=== PATIENT | female | born 1965 | race Two or more races ===

== ENCOUNTER → 2024-05-02 | Outpatient (CLI) | payer BC, SELFPAY ==
--- NOTE | 2024-05-02 10:00 | XR_ITS ---
Examination: Breast ultrasound complete, bilateral Date and time of exam: May 02, 2024 0948 hours INDICATIONS: Mammogram April 02, 2024 16 mm focal asymmetry upper inner left breast 10 mm focal asymmetry upper right breast MLO view Technique: Real-time grayscale ultrasonographic imaging bilateral breasts, including all 4 quadrants as well as nipple retroareolar and axillary regions. Findings: Sonographic images right breast No cystic or solid mass Sonographic images left breast No cystic or solid mass IMPRESSION: Negative examination
--- NOTE | 2024-05-02 11:00 | XR_ITS ---
Examination: Diagnostic digital mammography, bilateral Computer aided detection 3-D breast Tomosynthesis, bilateral Date and time of exam: May 02, 2024 1012 hours INDICATIONS: Mammogram April 02, 2024 16 mm focal asymmetry upper inner left breast 10 mm focal asymmetry upper right breast MLO view Technique: Nonmagnified MLO, CC views of the breasts to been obtained, reconstructed from 3-D Tomosynthesis images. R2 computer aided detection program utilized for evaluation of suspicious masses and/or abnormal calcifications. 3-D Tomosynthesis images obtained. Findings: The breasts are heterogeneously dense, which may obscure small masses Spot compression views both breasts do not demonstrate suspicious masses Impression: BI-RADS Category 2: Benign findings Return to yearly follow-up mammography.
== END | disposition home or self-care (01) ==
PROVIDERS: PCP Nurse Practitioner Family; Referring Provider Nurse Practitioner Family; Visit Provider Nurse Practitioner Family
DX: R92.323 Mammographic fibroglandular density, bilateral breasts (principal); N64.89 Other specified disorders of breast
CPT/HCPCS: 76641; 77062; 77066; G0279

== ENCOUNTER 2024-06-09 21:04 | Emergency (ER) | payer BC, SELFPAY ==
[2024-06-09 21:06] VITALS: BP 122/71; PULSE 80; RESP 20; TEMP 36.7; O2SAT 99
[2024-06-09 21:08] VITALS: BMI 53.1
[2024-06-09 21:14] VITALS: PULSE 85; RESP 22; O2SAT 95; BMI 24.7
--- NOTE | 2024-06-09 21:18 | EKG_ITS ---
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
--- NOTE | 2024-06-09 21:40 | XR_ITS ---
Examination: PA lateral chest 2 views Technique: Upright PA lateral chest 2 views Exam date and time: June 09, 2024 at 1033 hrs. Indications: Onset chest pain today. Findings: Normal heart size Lungs are clear. The osseous structures are intact Impression: No active disease
[2024-06-09] MEDS: MG HYD/AL HYD/SIME (Maalox Reg) SUSP 30 ML UDC PO (21:49)
[2024-06-09] MEDS: LIDOCAINE VISCOUS 2% 15 ML UDC PO (21:49)
--- NOTE | 2024-06-09 22:16 | PD.EDCHEST ---
ED Chest Pain RME/HPI General Chief Complaint: Chest Pain Stated Complaint: CHEST PAIN, SOB Time Seen by Provider: 06/09/24 21:39 Source: patient and EMS Arrival date/time: 06/09/24 21:04 Mode of arrival: EMS Limitations: no limitations RME / HPI RME / HPI narrative: Dr. Desai?s Main ED Evaluation: 59-year-old female with a history of rheumatoid arthritis, scleroderma, esophageal achalasia, who presents to the emergency department with left-sided substernal chest pain rating to the left shoulder that started while at rest. She was otherwise well during the day with no physical complaints. She did notice increased stress at work which had affected her diet and she had a late lunch and skipped her dinner. At home she had 1 glass of vodka to help her relax and send for the television to watch Smith's anatomy . It was during this where she noticed her left side is chest pressure, mild shortness of breath, and some dizziness. She got up to walk to see if this would improve her pain and did not therefore she called EMS. She does note chest discomfort with her esophageal issues where she normally walks up to go to a quiet room to relax . Today she noticed it got worse when she got up therefore she called EMS. She also notes 2 to 3 days of productive cough, she does not note sputum color. She denies fevers or sick contacts EMS reports stable upon arrival, no acute findings on EKG, improvement of pain with nitroglycerin x 2 given and reviewed. Related Data Home Medications ?Medication ?Instructions ?Recorded ?Confirmed amitriptyline 10 mg tablet 10 mg PO HS 02/23/23 02/23/23 cevimeline 30 mg capsule 1 cap PO QDAY 02/23/23 02/23/23 dexamethasone 1 mg/mL drops 1 mg PO QDAY 02/23/23 02/23/23 (concentrate) (Dexamethasone Intensol) hydroxychloroquine 200 mg tablet 200 mg PO QDAY 02/23/23 02/23/23 (Plaquenil) levothyroxine 88 mcg tablet 88 mcg PO QDAY 02/23/23 02/23/23 omeprazole 40 mg capsule,delayed 40 mg PO QDAY 02/23/23 02/23/23 release pregabalin 100 mg capsule (Lyrica) 100 mg PO BID 02/23/23 02/23/23 Allergies Allergy/AdvReac Type Severity Reaction Status Date / Time Penicillins Allergy Severe Swelling Verified 02/23/23 09:12 of Lip/Tongue/Throat Review of Systems Review of Systems Systems Reviewed: All systems reviewed, normal except as documented Past Medical History Past Medical History NEUROLOGIC: Negative Neurological Disorders or Seizures CARDIAC: Negative Cardiac Disorders or Congestive Heart Failure RESPIRATORY: Negative Chronic Obstructive Pulmonary Disease (COPD) GASTROINTESTINAL: Negative Gastrointestinal Disorders GENITOURINARY: Negative Genitourinary Disorders or Renal Disease MUSCULOSKELETAL: Positive Musculoskeletal Disorders and Fibromyalgia ENDOCRINE: Positive Endocrine Disorders and Hypothyroidism; Negative Diabetes Mellitus Type 1 or Diabetes Mellitus Type 2 HEMATOLOGIC: Negative Blood Disorders OTHER HISTORY: Positive Autoimmune Disease (FIBROMYALGIA, CREST SYNDROME, LUPUS); Negative Blood Transfusions, Blood Transfusion Reaction, Anesthesia Reactions, Chicken Pox, Measles, Mumps or Cancer Surgical History SURGICAL: Positive Section (X2) Social History SMOKING STATUS: Never smoker ED Exam Narrative Physical exam: GENERAL APPEARANCE: AxOx4, generally well-appearing, no acute distress. HEENT: NC, AT. MMM. EOMI, clear conjunctiva, oropharynx clear. NECK: Supple without lymphadenopathy. No stiffness or restricted ROM. HEART: Normal rate and regular rhythm, normal S1/S1, no m/r/g LUNGS: CTAB, moving air well. No crackles or wheezes are heard. ABDOMEN: Soft, nontender, nondistended with good bowel sounds heard. BACK: No midline C/T/L spine pain or deformity, No CVAT, no obvious deformity. EXTREMITIES: Without cyanosis, clubbing or edema. MUSCULOSKELETAL: FROM of all major joints, no chest tenderness NEUROLOGICAL: Grossly nonfocal. Alert and oriented, moving all 4 extremities. CN not formally tested but appear grossly intact. Observed to ambulate with normal gait. Skin: Warm and dry without any rash. General Limitations: Present no limitations Course Course Course Narrative: CXR is ordered for determining etiology of chest pain. Quality Measures none Orders Category Date Time Status EKG (ED ONLY) *Do not use* NOW Care 06/09/24 21:18 Completed EKG (ED Only) Stat Exams 06/09/24 21:18 Draft XR chest 2V Stat Exams 06/09/24 21:40 Completed CMP [Comprehensive Metabolic Panel] Stat Lab 06/09/24 21:53 Completed Troponin I Stat Lab 06/09/24 21:53 Completed Troponin I Stat Lab 06/09/24 23:30 Completed Acetaminophen Tab [Tylenol Tab] Med 06/10/24 00:29 Discontinued 650 mg PO X1 ONE Lidocaine 2% Viscous [Xylocaine 2% Viscous] Med 06/09/24 21:39 Discontinued 15 ml PO X1 ONE mg Hyd/Al Hyd/Marvin Susp [Maalox Susp] Med 06/09/24 21:39 Discontinued 30 ml PO X1 ONE Vital Signs Vital signs: Vital Signs Temperature 98.1 F 06/09/24 21:06 Pulse Rate 80 06/09/24 21:06 Respiratory Rate 20 06/09/24 21:06 Blood Pressure 122/71 06/09/24 21:06 Pulse Oximetry (%) 99 06/09/24 21:06 Oxygen Delivery Method Nasal Cannula 06/09/24 21:06 Oxygen Flow Rate 4 06/09/24 21:06 Chest Pain MDM Narrative MDM Narrative:: 59-year-old female with a history of esophageal spasms, chronic recurrent chest pain, who comes with worsening of her chest pain. She does note some dietary changes during the day due to situational stresses at work. Chest pain is of low suspicion for cardiac ischemia. Patient has no risk factors for coronary artery disease. EKG and troponin x 2 are negative, heart score of 1, she is appropriate for outpatient follow-up. Given her past history of esophageal spasm she was given a GI cocktail with improvement of pain. Remainder of laboratory testing such as renal function and electrolytes are within normal limits. Chest x-ray on my interpretation shows nonspecific bronchial markings in the right lower lobe which are nonspecific. Patient is otherwise asymptomatic without cough, do not feel this is an overt infection or pneumonia. Radiology interpretation is pending. I have reviewed these findings with the patient and encouraged close follow-up with her primary care doctor both for pulmonary and cardiac follow-up. As patient is stable vital signs, negative workup, she is appropriate for outpatient Scribe Attestation: I, Ed Vegas, am scribing for and in the presence of Dr. Desai. Provider Notation: Although this document has been carefully reviewed, there may still be some phonetic and other typographical errors. These errors are purely grammatical due to imperfections in the software program and should not be construed in any way to compromise the substance of the patient's medical care during this visit. Patient data External records reviewed:: [facility] previous records and EMS form Clinical information provided by:: patient and EMS Social determinants that could affect healthcare access:: none Patient has the following chronic illnesses:: rheumatoid arthritis, scleroderma, esophageal achalasia How is presenting disease/condition affected by chronic disease/condition?: uneffected by Evaluation data The following diagnostics were reviewed and interpreted by me:: lab results, radiology exam(s) and EKG tracing(s) Lab and/or radiology exams considered but not ordered:: None Interpretation Summary: See narrative Medications / Prescriptions Medications or Prescriptions considered but not ordered:: None Medication administrations:: Medication Administration History Discontinued Medications Acetaminophen (Acetaminophen 325 Mg Tablet) 650 mg PO X1 ONE Stop: 06/10/24 00:30 Al Hydrox/Mg Hydrox/Simethicone (Mg Hyd/Al Hyd/Marvin (Maalox Reg) Susp 30 Ml Udc) 30 ml PO X1 ONE Stop: 06/09/24 21:40 Last Admin: 06/09/24 21:49 Dose: 30 ml Documented By: MATT Lidocaine HCl (Lidocaine Viscous 2% 15 Ml Udc) 15 ml PO X1 ONE Stop: 06/09/24 21:40 Last Admin: 06/09/24 21:49 Dose: 15 ml Documented By: MATT As above, if any Consultations Consultation(s) initiated? (list below): No Diagnosis Most likely diagnosis given after review of the tests above:: See below Admission Indicated Admission indicated?: not indicated Explain why admission is indicated or not indicated:: Patient has no emergent abnormalities in their studies and can be managed on an outpatient basis. Admission Request Was there a request for admission?: No Disposition Plan Disposition Plan: Discharge Discharge Attestation Discharge Attestation: The patient and all family members were given an opportunity to ask questions and understood the discharge instructions. Discharge instructions specifically effects, indications for sooner follow up or return to the emergency department, and the expected course of current diagnosis. Patient condition: Stable Discharge Plan Plan Patient Disposition: HOME (Self Care) Prescriptions/Referrals Prescriptions/Med Rec: No Action omeprazole 40 mg capsule,delayed release(DR/EC) 40 mg PO QDAY Patient Comments: TAKE 1 CAPSULE BY MOUTH ONCE DAILY 30 MINUTES BEFORE MORNING MEAL Dexamethasone Intensol 1 mg/mL drops 1 mg PO QDAY Patient Comments: TAKE 1/2 (ONE-HALF) ML BY MOUTH EVERY 6 HOURS NEEDED levothyroxine 88 mcg tablet 88 mcg PO QDAY amitriptyline 10 mg tablet 10 mg PO HS Patient Comments: TAKE 1 TABLET BY MOUTH ONCE DAILY AT BEDTIME cevimeline 30 mg Capsule 1 cap PO QDAY hydroxychloroquine [Plaquenil] 200 mg Tablet 200 mg PO QDAY pregabalin [Lyrica] 100 mg Capsule 100 mg PO BID Referrals: No Primary/Family,Physician [Primary Care Provider] - In 1 week Problem List Clinical Impression: Chest pain, Acute viral bronchitis Patient/Caregiver Discharge Instructions Education Materials: ED Chest Pain, Uncertain Cause, ED Bronchitis, No Antibiotic (Adult) Additional Instructions: Follow-up with your primary care doctor in 3 to 5 days for recheck. You can return to the emergency department sooner symptoms worsen or if you notice any new, concerning issues. Print Language: Pashto Stand Alone Forms: Sherine Award Info., Patient Portal Info Letter
[2024-06-09 22:33] LABS: Alanine Aminotransferase 50 U/L (10-49); Albumin, Serum 4.6 gm/dL (3.5-5.0); Albumin/Globulin Ratio 1.8 (1.2-2.2); Alkaline Phosphatase 84 U/L (46-116); Anion Gap 14 (7-16); Aspartate Amino Transferase 36 U/L (0-34); BUN/Creatinine Ratio 13 Ratio (12-20); Bilirubin,Total 0.4 mg/dL (0.3-1.2); Blood Urea Nitrogen 12 mg/dL (9-23); Calcium 9.8 mg/dL (8.3-10.6); Calcium (Corrected) 9.8 mg/dL (8.5-10.1); Carbon Dioxide 24.2 mMol/L (20.0-31.0); Chloride 106 mMol/L (98-107); Creatinine (Component) 0.9 mg/dL (0.6-1.3); Estimated Creatinine Clearance 62.1 mL/min (>60); Globulin 2.5 gm/dL (2.3-3.5); Glucose 86 mg/dL (74-106); Osmolality,Calculated 285 (275-295); Potassium 4.3 mMol/L (3.4-5.1); Sodium 144 mMol/L (136-145); Total Protein 7.1 gm/dL (5.7-8.2); Troponin I < 0.002 ng/mL (0.0-0.045); eGFR > 60 See Note
[2024-06-09 23:23] VITALS: BP 140/72; PULSE 79; RESP 16; TEMP 36.6; O2SAT 99
[2024-06-09 23:58] LABS: Troponin I < 0.002 ng/mL (0.0-0.045)
[2024-06-10] MEDS: ACETAMINOPHEN 325 MG TABLET 650 MG PO (00:33)
[2024-06-10 00:45] VITALS: BP 102/71; PULSE 77; RESP 13; TEMP 36.7; O2SAT 96
== END 2024-06-10 00:46 | disposition home or self-care (01) ==
PROVIDERS: Emergency Provider Emergency Medicine
DX: R07.9 Chest pain, unspecified (principal); J20.8 Acute bronchitis due to other specified organisms; B97.89 Other viral agents as the cause of diseases classified elsewhere; M06.9 Rheumatoid arthritis, unspecified; Z56.6 Other physical and mental strain related to work
CPT/HCPCS: 36415; 71046; 80053; 84484; 93005; 99283; J3490; A9270

== ENCOUNTER → 2024-08-02 | Outpatient (CLI) | payer BC, SELFPAY ==
[2024-08-02 08:53] LABS: Basophils % (Auto) 1 % (0-2.5); Eosinophils # (Auto) 0.2 Thou/mm3 (0.0-0.5); Eosinophils % (Auto) 2 % (0-10); Hematocrit 40.1 % (36.0-46.0); Hemoglobin 13.3 g/dL (12.0-16.0); Immature Granulocytes % (Auto) 0 % (0-0); Immature Granulocytes Auto 0.01 Thou/mm3 (0.00-0.00); Lymphocytes # (Auto) 2.3 Thou/mm3 (1.0-4.8); Lymphocytes % (Auto) 36 % (10-50); Mean Corpuscular HGB Conc 33.2 g/dl (31.0-37.0); Mean Corpuscular Hemoglobin 29.6 pg (25.0-35.0); Mean Corpuscular Volume 89 fL (80-100); Monocytes # (Auto) 0.6 Thou/mm3 (0.0-0.8); Monocytes % (Auto) 10 % (0-12); Neutrophils # (Auto) 3.2 Thou/mm3 (1.8-7.7); Neutrophils % (Auto) 51 % (37-80); Nucleated Red Blood Cell # 0.02 Thou/mm3 (0.00-0.00); Nucleated Red Blood Cell % 0 /100 WBC (0); Platelet Count 211 Thou/mm3 (140-440); Red Blood Count 4.49 Miln/mm3 (4.00-5.20); White Blood Count 6.4 Thou/mm3 (3.6-11.0)
[2024-08-02 09:30] LABS: Alanine Aminotransferase 24 U/L (10-49); Albumin, Serum 4.5 gm/dL (3.5-5.0); Alkaline Phosphatase 82 U/L (46-116); Anion Gap 10 (7-16); Aspartate Amino Transferase 22 U/L (0-34); BUN/Creatinine Ratio 13 Ratio (12-20); Bilirubin,Total 0.4 mg/dL (0.3-1.2); Blood Urea Nitrogen 13 mg/dL (9-23); C-Reactive Protein < 0.5 mg/dL (0.0-0.9); Calcium 9.5 mg/dL (8.3-10.6); Calcium (Corrected) 9.5 mg/dL (8.5-10.1); Carbon Dioxide 27.2 mMol/L (20.0-31.0); Chloride 106 mMol/L (98-107); Globulin 2.3 gm/dL (2.3-3.5); Glucose 97 mg/dL (74-106); Osmolality,Calculated 285 (275-295); Potassium 3.9 mMol/L (3.4-5.1); Sodium 143 mMol/L (136-145); Total Protein 6.8 gm/dL (5.7-8.2); eGFR > 60 See Note
[2024-08-02 09:35] LABS: Sed Rate (ESR) 17 mm/hr (0-30)
[2024-08-08 06:45] LABS: Complement Component C3* 167 mg/dL (83-193); Complement Component C4c* 28 mg/dL (15-57); DNA (ds) Antibody* <1 IU/mL
== END | disposition home or self-care (01) ==
LOC: COPL 07:09
PROVIDERS: PCP Family Medicine; Referring Provider Internal Medicine Rheumatology; Visit Provider Internal Medicine Rheumatology
DX: M32.9 Systemic lupus erythematosus, unspecified (principal)
CPT/HCPCS: 36415; 80053; 85025; 85652; 86140; 86160; 86225

== ENCOUNTER 2024-12-10 21:03 | Emergency (ER) | payer BC, SELFPAY ==
[2024-12-10 21:12] VITALS: BP 120/74; PULSE 91; RESP 21; TEMP 37; O2SAT 100
--- NOTE | 2024-12-10 21:12 | EKG_ITS ---
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
[2024-12-10 21:24] VITALS: PULSE 88; RESP 18; O2SAT 97; BMI 23.8
--- NOTE | 2024-12-10 21:35 | PD.EDHA ---
ED Headache RME/HPI General Chief Complaint: Chest Pain Stated Complaint: CHEST PAIN Time Seen by Provider: 12/10/24 21:08 Arrival date/time: 12/10/24 21:03 RME / HPI RME / HPI Narrative: DR. FELIX MAIN ED EVALUATION: 59 y/o female with Hx of Lupus Erythematous, Fibromyalgia, and Kidney Disease AVERY from home presents to ED c/o sudden onset chest pain, severe headache, and vomiting with red blood streaks (x4) x this morning. Patient states she quit drinking on 10/07/2024, but had a shot of Tequila while out to dinner with friends and vomited. Patient also reports red blood streaks in her stool x 1.5 months but denies Hx of hemorrhoids. In addition, patient states she had a panic attack earlier today when another dog ran onto her yard and her dog got riled up. She took her home Nitroglycen SL 0.04 mg for the induced chest pain. EMS administered an additional dose of SL Nitro 0.04 mg and Ntro paste 0.04 mg placed on the chest. Patient reports some relief with pain now 10/06. Patient sees Dr. Gastelum for gastroenterology treatment. Dr. Gastelum suggested he needed to expand her throat following an endoscopy, but patient did not deem it necessary, but now admits she has difficulty swallowing. Related Data Home Medications ?Medication ?Instructions ?Recorded ?Confirmed amitriptyline 10 mg tablet 10 mg PO HS 02/23/23 02/23/23 cevimeline 30 mg capsule 1 cap PO QDAY 02/23/23 02/23/23 dexamethasone 1 mg/mL drops 1 mg PO QDAY 02/23/23 02/23/23 (concentrate) (Dexamethasone Intensol) hydroxychloroquine 200 mg tablet 200 mg PO QDAY 02/23/23 02/23/23 (Plaquenil) levothyroxine 88 mcg tablet 88 mcg PO QDAY 02/23/23 02/23/23 omeprazole 40 mg capsule,delayed 40 mg PO QDAY 02/23/23 02/23/23 release pregabalin 100 mg capsule (Lyrica) 100 mg PO BID 02/23/23 02/23/23 Allergies Allergy/AdvReac Type Severity Reaction Status Date / Time Penicillins Allergy Severe Swelling Verified 02/23/23 09:12 of Lip/Tongue/Throat Review of Systems Review of Systems Systems Reviewed: All systems reviewed, normal except as documented Past Medical History Past Medical History MUSCULOSKELETAL: Positive Musculoskeletal Disorders and Fibromyalgia ENDOCRINE: Positive Endocrine Disorders and Hypothyroidism OTHER HISTORY: Positive Autoimmune Disease Surgical History SURGICAL: Positive Section ED Exam Narrative Physical exam: GENERAL APPEARANCE: alert and oriented x 4, well-developed, well-nourished, no acute distress, appears anxious VITALS: All vitals were reviewed and the pulse ox is 100% on room air, which is normal according to my interpretation. HEENT: Normocephalic, atraumatic; pupils equal, round, reactive to light; EOMI; mucous membranes pink, moist; oropharynx clear, Love facies NECK: Supple LUNGS: CTABL; no wheezes, no rales, no rhonchi HEART: Regular rate, regular rhythm; normal S1, S2; no murmurs ABDOMEN: non distended; normal BS; soft, no tenderness, no guarding, no rebound; no masses, no organomegaly, no hernia BACK: no CVA tenderness EXTREMITIES: atraumatic; no edema NEUROLOGIC: awake; alert and oriented x4; cranial nerves II-XII grossly intact; no focal sensory or motor deficits PSYCHIATRIC: appropriate mood and affect SKIN: warm, dry, normal color; no rashes Course Course Course Narrative: 2349: Ordered RL. Quality Measures none Orders Category Date Time Status Clinical Staff Pharmacist NOW Care 12/10/24 21:38 Active EKG (ED ONLY) *Do not use* NOW Care 12/10/24 21:12 Completed EKG (ED Only) Stat Exams 12/10/24 21:12 Draft XR abdomen series w chest 1V Stat Exams 12/10/24 21:38 Completed B-Type Natriuretic Peptide Stat Lab 12/10/24 21:50 Completed CBC Stat Lab 12/10/24 21:50 Completed Comprehensive Metabolic Panel Stat Lab 12/10/24 21:50 Completed Lipase Stat Lab 12/10/24 21:50 Completed Magnesium Stat Lab 12/10/24 21:50 Completed Partial Thromboplastin Time Stat Lab 12/10/24 21:50 Completed Prothrombin Time with INR Stat Lab 12/10/24 21:50 Completed Troponin I Stat Lab 12/10/24 21:50 Completed Troponin I Stat Lab 12/11/24 01:24 Completed HYDROcodone*/APAP 5/325 [Trosper 5/325] Med 12/11/24 01:53 Discontinued 1 tab PO X1 ONE LORazepam [Ativan] Med 12/10/24 22:02 Discontinued 1 mg PO X1 ONE Lidocaine 2% Viscous [Xylocaine 2% Viscous] Med 12/10/24 21:57 Discontinued 15 ml PO X1 ONE Ondansetron Odt [Zofran Odt] Med 12/10/24 22:02 Discontinued 4 mg PO X1 ONE Ringers Lactated 1000 ml [Lactated Ringers] 1,000 ml Med 12/10/24 23:49 Discontinued IV 999 mls/hr mg Hyd/Al Hyd/Marvin Susp [Maalox Susp] Med 12/10/24 21:57 Discontinued 30 ml PO X1 ONE Vital Signs Vital signs: Vital Signs Temperature 98.6 F 12/10/24 21:12 Pulse Rate 91 12/10/24 21:12 Respiratory Rate 21 H 12/10/24 21:12 Blood Pressure 120/74 12/10/24 21:12 Pulse Oximetry (%) 100 12/10/24 21:12 Oxygen Delivery Method Room Air 12/10/24 21:12 Headache MDM Narrative MDM Narrative:: Scribe Attestation: Alis Snow, am scribing for and in the presence of Dr. Felix. Provider Notation: Although this document has been carefully reviewed, there may still be some phonetic and other typographical errors.? These errors are purely grammatical due to imperfections in the software program and should not be construed in any way to? compromise the substance of the patient's medical care during this visit. Patient data External records reviewed:: [facility] previous records (Reviewed prior ED records from 06/09/24. Patient was seen for Acute viral bronchitis.) and EMS form Clinical information provided by:: patient and EMS Social determinants that could affect healthcare access:: none Patient has the following chronic illnesses:: Lupus Erythematous, Fibromyalgia, Fibromyalgia, Hypothyroidism How is presenting disease/condition affected by chronic disease/condition?: exacerbated by Evaluation data The following diagnostics were reviewed and interpreted by me:: lab results, radiology exam(s) and EKG tracing(s) (EKG manual reading, my interpretation: sinus rhythm, rate: 96 bpm, no ST elevation, no acute ischemic changes, interpreted as normal) Lab and/or radiology exams considered but not ordered:: None Interpretation Summary: RADIOLOGY Chest/Abdomen X-Ray: FINDINGS: Normal heart size. Lungs are clear. Surgical clips upper right abdomen. Nonobstructive bowel gas pattern. No free air IMPRESSION: Nonobstructive bowel gas pattern Medications / Prescriptions Medications or Prescriptions considered but not ordered:: None Medication administrations:: Medication Administration History Discontinued Medications Hydrocodone Bitart/Acetaminophen (Hydrocodone/Apap 5/325 Tablet) 1 tab PO X1 ONE Stop: 12/11/24 01:54 Last Admin: 12/11/24 01:58 Dose: 1 tab Documented By: MONIKA Al Hydrox/Mg Hydrox/Simethicone (Mg Hyd/Al Hyd/Marvin (Maalox Reg) Susp 30 Ml Udc) 30 ml PO X1 ONE Stop: 12/10/24 21:58 Last Admin: 12/10/24 22:21 Dose: 30 ml Documented By: DARIELA Lactated Ringer's (Lactated Ringers) 1,000 mls @ 999 mls/hr IV .Q1H1M ONE Stop: 12/11/24 00:49 Last Infusion: 12/11/24 01:25 Dose: Infused Documented By: Admin: 12/11/24 00:18 Dose: 999 mls/hr Documented By: MONIKA Lidocaine HCl (Lidocaine Viscous 2% 15 Ml Udc) 15 ml PO X1 ONE Stop: 12/10/24 21:58 Last Admin: 12/10/24 22:21 Dose: 15 ml Documented By: DARIELA Lorazepam (Lorazepam 0.5 Mg Tablet) 1 mg PO X1 ONE Stop: 12/10/24 22:03 Last Admin: 12/10/24 22:22 Dose: 1 mg Documented By: DARIELA Ondansetron HCl (Ondansetron Odt 4 Mg Tabrap) 4 mg PO X1 ONE; Protocol Stop: 12/10/24 22:03 Last Admin: 12/10/24 22:23 Dose: 4 mg Documented By: DARIELA See above Consultations Consultation(s) initiated? (list below): No Diagnosis Differential diagnosis headache: tension headache, headache, sinusitis and other (Anxiety disorder, Acute MS, Panic disorder) Most likely diagnosis given after review of the tests above:: History of esophageal stricture, Chest pressure Admission Indicated Admission indicated?: not indicated Explain why admission is indicated or not indicated:: Patient does not meet admission criteria. Admission Request Was there a request for admission?: No Disposition Plan Disposition Plan: Discharge Discharge Attestation Discharge Attestation: The patient and all family members were given an opportunity to ask questions and understood the discharge instructions. Discharge instructions specifically effects, indications for sooner follow up or return to the emergency department, and the expected course of current diagnosis. Patient condition: Stable Discharge Plan Plan Patient Disposition: HOME (Self Care) Prescriptions/Referrals Prescriptions/Med Rec: No Action omeprazole 40 mg capsule,delayed release(DR/EC) 40 mg PO QDAY Patient Comments: TAKE 1 CAPSULE BY MOUTH ONCE DAILY 30 MINUTES BEFORE MORNING MEAL Dexamethasone Intensol 1 mg/mL drops 1 mg PO QDAY Patient Comments: TAKE 1/2 (ONE-HALF) ML BY MOUTH EVERY 6 HOURS NEEDED levothyroxine 88 mcg tablet 88 mcg PO QDAY amitriptyline 10 mg tablet 10 mg PO HS Patient Comments: TAKE 1 TABLET BY MOUTH ONCE DAILY AT BEDTIME cevimeline 30 mg Capsule 1 cap PO QDAY hydroxychloroquine [Plaquenil] 200 mg Tablet 200 mg PO QDAY pregabalin [Lyrica] 100 mg Capsule 100 mg PO BID Referrals: No Primary/Family,Physician [Referring Provider] - In 1 week Problem List Clinical Impression: History of esophageal stricture, Chest pressure Patient/Caregiver Discharge Instructions Education Materials: ED Chest Pain, Uncertain Cause Print Language: Burmese Stand Alone Forms: Sherine Award Info., Patient Portal Info Letter
--- NOTE | 2024-12-10 21:38 | XR_ITS ---
Examination: AP chest abdomen 2 views INDICATIONS: Abdominal series including AP upright chest AP supine AP upright abdomen 3 views Date and time: December 10, 2024 2155 hours INDICATIONS: Abdominal pain today. FINDINGS: Normal heart size. Lungs are clear. Surgical clips upper right abdomen. Nonobstructive bowel gas pattern. No free air IMPRESSION: Nonobstructive bowel gas pattern
[2024-12-10 21:45] VITALS: PULSE 80
[2024-12-10 22:00] VITALS: BP 101/64; PULSE 87; RESP 16; TEMP 37.2; O2SAT 100
[2024-12-10 22:02] LABS: Basophils # (Auto) 0.1 Thou/mm3 (0.0-0.2); Basophils % (Auto) 1 % (0-2.5); Eosinophils # (Auto) 0.3 Thou/mm3 (0.0-0.5); Eosinophils % (Auto) 3 % (0-10); Hematocrit 39.9 % (36.0-46.0); Hemoglobin 13.6 g/dL (12.0-16.0); Immature Granulocytes Auto 0.02 Thou/mm3 (0.00-0.00); Lymphocytes # (Auto) 3.2 Thou/mm3 (1.0-4.8); Lymphocytes % (Auto) 36 % (10-50); Mean Corpuscular HGB Conc 34.1 g/dl (31.0-37.0); Mean Corpuscular Hemoglobin 29.1 pg (25.0-35.0); Mean Corpuscular Volume 85 fL (80-100); Monocytes # (Auto) 0.8 Thou/mm3 (0.0-0.8); Monocytes % (Auto) 9 % (0-12); Neutrophils # (Auto) 4.6 Thou/mm3 (1.8-7.7); Neutrophils % (Auto) 51 % (37-80); Nucleated Red Blood Cell # 0.00 Thou/mm3 (0.00-0.00); Nucleated Red Blood Cell % 0 /100 WBC (0); Platelet Count 232 Thou/mm3 (140-440); RDW Standard Deviation 44.0 fL (36.4-46.3); Red Blood Count 4.68 Miln/mm3 (4.00-5.20); White Blood Count 9.0 Thou/mm3 (3.6-11.0)
[2024-12-10 22:15] LABS: INR 1.0 (0.9-1.3); Partial Thromboplastin Time 27.6 Seconds (22.0-36.0); Prothrombin Time 10.9 Seconds (9.0-12.2)
[2024-12-10 22:19] LABS: Alanine Aminotransferase 17 U/L (10-49); Albumin, Serum 4.6 gm/dL (3.5-5.0); Albumin/Globulin Ratio 1.8 (1.2-2.2); Alkaline Phosphatase 78 U/L (46-116); Anion Gap 17 (7-16); Aspartate Amino Transferase 22 U/L (0-34); BUN/Creatinine Ratio 10 Ratio (12-20); Bilirubin,Total 0.4 mg/dL (0.3-1.2); Blood Urea Nitrogen 8 mg/dL (9-23); Calcium 9.1 mg/dL (8.3-10.6); Calcium (Corrected) 9.1 mg/dL (8.5-10.1); Carbon Dioxide 19.2 mMol/L (20.0-31.0); Chloride 110 mMol/L (98-107); Creatinine (Component) 0.8 mg/dL (0.6-1.3); Estimated Creatinine Clearance 67.0 mL/min (>60); Globulin 2.6 gm/dL (2.3-3.5); Glucose 131 mg/dL (74-106); Lipase 30 U/L (12-53); Magnesium 1.8 mg/dL (1.6-2.6); Osmolality,Calculated 290 (275-295); Potassium 3.4 mMol/L (3.4-5.1); Sodium 146 mMol/L (136-145); Total Protein 7.2 gm/dL (5.7-8.2); Troponin I < 0.020 ng/mL (0.0-0.045); eGFR > 60 See Note
[2024-12-10 22:20] LABS: B-Type Natriuretic Peptide < 20 pg/mL (0-100)
[2024-12-10] MEDS: LIDOCAINE VISCOUS 2% 15 ML UDC PO (22:21)
[2024-12-10] MEDS: MG HYD/AL HYD/SIME (Maalox Reg) SUSP 30 ML UDC PO (22:21)
[2024-12-10] MEDS: ONDANSETRON ODT 4 MG TABRAP PO (22:23)
[2024-12-11] MEDS: RINGERS LACTATED 1000 ML 1,000 ML 999 ML IV (00:18)
[2024-12-11] MEDS: HYDROcodone/APAP 5/325 TABLET 1 TAB PO (01:58)
[2024-12-11 01:59] LABS: Troponin I < 0.020 ng/mL (0.0-0.045)
[2024-12-11 03:13] VITALS: BP 100/68; PULSE 76; RESP 16; TEMP 36.8; O2SAT 98
== END 2024-12-11 03:14 | disposition home or self-care (01) ==
PROVIDERS: Emergency Provider Emergency Medicine; PCP Family Medicine
DX: R07.89 Other chest pain (principal); I25.2 Old myocardial infarction; M32.9 Systemic lupus erythematosus, unspecified; R51.9 Headache, unspecified; R13.10 Dysphagia, unspecified; M79.7 Fibromyalgia; R11.10 Vomiting, unspecified
CPT/HCPCS: 36415; 74022; 80053; 83690; 83735; 83880; 84484; 85025; 85610; 85730; 93005; 96360; 99283; J3490; J7120; Q0162; A9270

== ENCOUNTER → 2025-02-15 | Outpatient (CLI) | payer BC, SELFPAY ==
[2025-02-15 09:07] LABS: Free T4 (Free Thyroxine) 1.75 ng/dL (0.89-1.76); Thyroid Stimulating Hormone 0.29 uIU/mL (0.55-4.78)
[2025-02-20 06:36] LABS: T3,Total* 81 ng/dL (76-181)
== END | disposition home or self-care (01) ==
LOC: COPL 07:10
PROVIDERS: PCP Family Medicine; Referring Provider Nurse Practitioner Family; Visit Provider Nurse Practitioner Family
DX: E03.9 Hypothyroidism, unspecified (principal)
CPT/HCPCS: 36415; 84439; 84443; 84480

== ENCOUNTER 2025-03-04 09:30 | Day surgery (SDC) | payer BC, SELFPAY ==
[2025-03-01 14:11] VITALS: BMI 25.1
[2025-03-04] VITALS (8 sets, daily range): BP systolic 122–179; BP diastolic 65–97; PULSE 71–83; RESP 14–23; TEMP 36.2–36.9; O2SAT 91–100; BMI 22.3
[2025-03-04] MEDS: BENZOCAINE 20% (Hurricaine) SPRAY 1 DOSE TOP (11:56)
[2025-03-04] MEDS: fentaNYL CIT INJ 50 mCg/ML AMP 2ML (ASD USE ONLY) IVP (11:56)
[2025-03-04] MEDS: MIDAZOLAM INJ 1 MG/ML VIAL 2 ML (ASD USE ONLY) 2 MG IVP (11:56)
[2025-03-04] MEDS: SODIUM CHLORIDE 0.9% 500 ML 500 ML 20 ML IV (11:56)
--- NOTE | 2025-03-04 12:54 | SUR.PHASEII ---
1220 Pt more awake and alert. Denies pain, N/V or difficulty swallowing. Pt tearful and relieved. Emotional support offered. Naomy PO fluids. 1240 Pt asessment unchanged. No complaints. Amb with steady gait. Able to dress self. Pt and friend given dc instructions. Both state understanding. Pt meets dc criteria-to home.
== END 2025-03-04 12:40 | disposition home or self-care (01) ==
PROVIDERS: PCP Internal Medicine Rheumatology; Referring Provider Specialist; Visit Provider Specialist
PROC: (CPT 43239; principal; 2025-03-04 10:30)
DX: K22.2 Esophageal obstruction (principal); K31.89 Other diseases of stomach and duodenum; M32.9 Systemic lupus erythematosus, unspecified; M79.7 Fibromyalgia; E03.9 Hypothyroidism, unspecified; Z79.890 Hormone replacement therapy; K29.50 Unspecified chronic gastritis without bleeding
CPT/HCPCS: 43248; 43239; A4649; C1769; J1200; J2250; J3010; J7999; A9270

== ENCOUNTER → 2025-03-13 | Outpatient (CLI) | payer BC, SELFPAY ==
[2025-03-13 11:07] LABS: Alanine Aminotransferase 20 U/L (10-49); Albumin, Serum 4.6 gm/dL (3.5-5.0); Albumin/Globulin Ratio 2.1 (1.2-2.2); Alkaline Phosphatase 69 U/L (46-116); Anion Gap 12 (7-16); Aspartate Amino Transferase 32 U/L (0-34); BUN/Creatinine Ratio 13 Ratio (12-20); Bilirubin,Total 0.5 mg/dL (0.3-1.2); Blood Urea Nitrogen 12 mg/dL (9-23); C-Reactive Protein < 0.5 mg/dL (0.0-0.9); Calcium 9.2 mg/dL (8.3-10.6); Calcium (Corrected) 9.2 mg/dL (8.5-10.1); Carbon Dioxide 26.8 mMol/L (20.0-31.0); Cardiac Risk Estimate 1.9 RATIO (3.7-5.6); Chloride 104 mMol/L (98-107); Cholesterol 140 mg/dL (132-200); Creatinine (Component) 0.9 mg/dL (0.6-1.3); Globulin 2.2 gm/dL (2.3-3.5); Glucose 103 mg/dL (74-106); HDL Cholesterol 74 mg/dL (40-60); LDL Cholesterol,Calculated 44 mg/dL (0-130); Osmolality,Calculated 284 (275-295); Potassium 4.0 mMol/L (3.4-5.1); Sodium 143 mMol/L (136-145); Total Protein 6.8 gm/dL (5.7-8.2); Triglycerides 108 mg/dL (30-150); Troponin I < 0.002 ng/mL (0.0-0.045); eGFR > 60 See Note
[2025-03-13 11:09] LABS: B-Type Natriuretic Peptide < 20 pg/mL (0-100)
[2025-03-13 11:22] LABS: Sed Rate (ESR) 7 mm/hr (0-30)
== END | disposition home or self-care (01) ==
LOC: COPL 09:25
PROVIDERS: PCP Family Medicine; Referring Provider Internal Medicine Cardiovascular Disease; Visit Provider Internal Medicine Cardiovascular Disease
DX: R07.9 Chest pain, unspecified (principal)
CPT/HCPCS: 36415; 80053; 80061; 83880; 84484; 85652; 86140

== ENCOUNTER 2025-04-16 09:16 | Day surgery (SDC) | payer BC, SELFPAY ==
[2025-04-16] VITALS (14 sets, daily range): BP systolic 100–132; BP diastolic 49–70; PULSE 58–74; RESP 12–97; TEMP 36.4–36.5; O2SAT 96–100
--- NOTE | 2025-04-16 09:29 | EKG_ITS ---
[facility] Test Date: 2025-04-16 Pat Name: BETH ZAMAN Department: Room: - Gender: Female Electrical Installer: LIDYA : 1965 Requested By: Alton Cohen Order Number: [id number] Reading MD: Alton Cohen Measurements Intervals [place] Rate: 59 P: 45 AK: 159 QRS: -5 QRSD: 89 T: 39 QT: 425 QTc: 424 Interpretive Statements SINUS BRADYCARDIA WITH OCCASIONAL SUPRAVENTRICULAR PREMATURE COMPLEXES POSSIBLE LEFT ATRIAL ENLARGEMENT [-0.1mV P WAVE IN V1/V2] ST DEVIATION AND MODERATE T-WAVE ABNORMALITY, CONSIDER ANTERIOR ISCHEMIA [-0.1+ mV T WAVE IN V3/V4] Compared to ECG 12/10/2024 21:12:57 T-wave abnormality now present Possible ischemia now present Sinus rhythm no longer present Left-axis deviation no longer present Myocardial infarct finding no longer present /store/S0/[id number]/[id number].pdf
[2025-04-16 09:53] LABS: Basophils # (Auto) 0.1 Thou/mm3 (0.0-0.2); Basophils % (Auto) 1 % (0-2.5); Eosinophils # (Auto) 0.1 Thou/mm3 (0.0-0.5); Eosinophils % (Auto) 2 % (0-10); Hematocrit 40.2 % (36.0-46.0); Hemoglobin 13.2 g/dL (12.0-16.0); Immature Granulocytes Auto 0.02 Thou/mm3 (0.00-0.00); Lymphocytes # (Auto) 2.1 Thou/mm3 (1.0-4.8); Lymphocytes % (Auto) 37 % (10-50); Mean Corpuscular HGB Conc 32.8 g/dl (31.0-37.0); Mean Corpuscular Hemoglobin 30.1 pg (25.0-35.0); Mean Corpuscular Volume 92 fL (80-100); Monocytes # (Auto) 0.5 Thou/mm3 (0.0-0.8); Monocytes % (Auto) 10 % (0-12); Neutrophils # (Auto) 2.8 Thou/mm3 (1.8-7.7); Neutrophils % (Auto) 50 % (37-80); Nucleated Red Blood Cell # 0.00 Thou/mm3 (0.00-0.00); Nucleated Red Blood Cell % 0 /100 WBC (0); Platelet Count 199 Thou/mm3 (140-440); RDW Standard Deviation 47.9 fL (36.4-46.3); Red Blood Count 4.39 Miln/mm3 (4.00-5.20); White Blood Count 5.6 Thou/mm3 (3.6-11.0)
[2025-04-16 10:00] LABS: INR 1.1 (0.9-1.3); Partial Thromboplastin Time 28.1 Seconds (22.0-36.0); Prothrombin Time 11.2 Seconds (9.0-12.2)
[2025-04-16 10:04] LABS: Anion Gap 12 (7-16); BUN/Creatinine Ratio 17 Ratio (12-20); Blood Urea Nitrogen 15 mg/dL (9-23); Calcium 9.3 mg/dL (8.3-10.6); Carbon Dioxide 27.4 mMol/L (20.0-31.0); Chloride 106 mMol/L (98-107); Creatinine (Component) 0.9 mg/dL (0.6-1.3); Glucose 87 mg/dL (74-106); Osmolality,Calculated 288 (275-295); Potassium 4.1 mMol/L (3.4-5.1); Sodium 145 mMol/L (136-145); eGFR > 60 See Note
[2025-04-16] MEDS: SODIUM CHLORIDE 0.45 % 500 ML 150 ML IV (12:35)
--- NOTE | 2025-04-16 15:00 | PC.NURSE ---
Addendum entered by Yuli Abad RN 04/16/25 15:07: Held pressure for 10 minutes and redressed the right wrist. Educated patient on holding pressure if bleeding starts at home. Original Note: Patient walking back from the restroom and was bleeding from right wrist.
--- NOTE | 2025-04-16 16:16 | ESOP_ITS ---
Cardiac Cath Procedure Procedure Name Date of procedure: 04/16/2025 PRODUCT SCIENTIST: Alton Bose MD PROCEDURE PERFORMED: 1. Left heart cardiac catheterization- Left and right coronary angiograms with LVEDP measurement and left ventriculogram 2. Ultrasound-guided access of the right radial artery 3. Conscious sedation for 30 minutes.. Procedure Narrative HISTORY AND INDICATIONS: Patient is a 59 year old female with past medical history of lupus, CKD stage II, esophageal strictures (s/p dilatation), vertigo, hypothyroidism who presents with persistent chest pain. Patient had ischemic cardiac work up and Explained to patient given her PET scan shows abnormal myocardial perfusion abnormal small inferior wall, patient was brought in for an elective cardiac catheterization. Patient was explained the risk benefits and alternatives of performing a left heart cardiac catheterization including the risk of bleeding, heart attack, stroke and in detail and the agreeable for the procedure. Consent signed, placed in the chart and H&P updated. DESCRIPTION OF PROCEDURE: The patient was brought to the cardiac catheterization lab and all asceptic precautions were followed. Patient was given 1 Mg of Versed and 50 mcg of fentanyl for moderate conscious sedation. 2 mL of lidocaine was given in the right wrist. The right radial artery was accessed via the ultrasound guidance as well as micropuncture technique. A 6 [place] glide sheath was introduced. We then used a 5 [place] TIG 4 catheter to perform the left and right coronary angiograms as well as a left ventriculogram which showed the following findings. 1. Left ventricular ejection fraction was normal at 50 to 55% without any regional wall motion abnormalities. LVEDP was normal at 16 mmHg. There was no significant transvalvular aortic gradient. 2. Right dominant circulation 3. Left main artery is a large-caliber vessel gives rise to LAD, LCX and without any significant disease. 4. LAD is a large sized artery, gives rise to a medium size diagonal and without show any significant disease. 5. LCx is a large sized artery, gives rise to a medium OM1 and small OM2 without any significant disease. 6. RCA is a large artery, gives rise to a medium RPDA and RPL without any significant disease. A radial band was used to achieve the hemostasis of the right radial artery access. Patient will be monitored in the cardiac vice president integrated for the next 2 to 3 hours and will be discharged home / telemetry later today if hemodynamically stable. Complications: None Specimens: None Blood loss: Estimated 5-10 ml Summary/findings: 1. Abnormal Stress test: LHC showed normal coronaries with only minimal luminal irregularities and no angiographically significant obstruction. 2. LVEF normal at 50-55% and LVEDP normal at 16 mmHg. No significant transvalvular aortic gradient. Recommendations: 1. Recommend aggressive medical treatment and aggressive risk factor modification. 2. Recommended no lifting more than 5 pounds for next 7-10 days and follow up in my office in 7 days. Alton Bose MD Interventional Cardiology.
== END 2025-04-16 15:45 | disposition home or self-care (01) ==
PROVIDERS: PCP Family Medicine; Referring Provider Internal Medicine Cardiovascular Disease; Visit Provider Internal Medicine Cardiovascular Disease
PROC: (CPT 93458; principal; 2025-04-16 11:30)
DX: R07.9 Chest pain, unspecified (principal); M32.19 Other organ or system involvement in systemic lupus erythematosus; R94.31 Abnormal electrocardiogram [ECG] [EKG]; N18.2 Chronic kidney disease, stage 2 (mild); E03.8 Other specified hypothyroidism
CPT/HCPCS: 93458; 36415; 80048; 85025; 85610; 85730; 93005; 99152; A4649; C1769; C1887; C1894; J0153; J0168; J0282; J0461; J1643; J2250; J2312; J2371; J3010; J3490; J7030; Q9967; J2305